=== PATIENT | female | born 1950 | race African-American/Black ===

== ENCOUNTER 2020-10-13 20:43 | Emergency (ER) | payer OTHER ==
[~2020-10-13] VITALS: Ht 170.2 cm; Wt 111.2 kg
[2020-10-13 20:43] VITALS: BP 151/113
--- NOTE | 2020-10-13 20:58 | NUR ---
PT W/C ASSISTED TO ED BED 11.
--- NOTE | 2020-10-13 20:59 | NUR ---
PATIENT BIB SELF C/O 05/04 "SHARP" NECK PAIN X 1 WEEK, "BUT HAS GOTTEN WORSE SINCE 10AM TODAY". PATIENT STATED "I THOUGHT I JUST SLEPT WRONG". A&O X4. ROM COMPROMISED, PATIENT UNABLE TO TURN HEAD LEFT/RIGHT. PATIENT REPORTS TAKING A BABY ASPIRIN AND SOMA WITHOUT RELIEF. PATIENT REPORTS SURGERY TO HER NECK IN 1997. MED HX: TIA X2, HTN, ARRHYTHMIA ALLERGIES: PENICILLINS
--- NOTE | 2020-10-13 21:04 | NUR ---
Dr. Regalado examining patient.
--- NOTE | 2020-10-13 21:08 | NUR ---
EMT AT BEDSIDE PERFORMING EKG PER ERMD ORDER.
[2020-10-13] MEDS ORDERED: HYDROcodone/APAP 5/325 MG 1 TAB TAB PO ONE (21:15)
[2020-10-13 21:33] VITALS: BP 151/113
--- NOTE | 2020-10-13 21:33 | NUR ---
Patient discharged with v/s stable. Written and verbal after care instructions given and explained. PT GIVEN WARM PACK APPLIED TO NECK PER REQUEST. Patient verbalized understanding. Ambulatory with steady gait. All questions addressed prior to discharge. Advised to follow up with PMD.
== END 2020-10-13 21:33 | disposition home or self-care (01) ==
LOC: MED 20:43
DX: M54.2 Cervicalgia (principal); I10 Essential (primary) hypertension; Z88.0 Allergy status to penicillin
CPT/HCPCS: 93005; 99283